=== PATIENT | male | born 1965 | race Caucasian/White ===

== ENCOUNTER 2017-06-13 16:39 | Inpatient (IN) | payer MEDICARE, MEDICAID ==
[~2017-06-13] VITALS: Ht 166.3 cm; Wt 122.5 kg
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
[~2017-06-13 16:39] MED LIST: ABILIFY10 MG PO; ACCUPRIL40 MG PO; ALBUTEROL0.09 MG/A1 INH; ALEVE220 MG PO; AMBIEN10 MG PO; ATIVAN0.5 MG PO; B12-METHYL1000 MCG PO; CARVEDILOL12.5 MG; CELEBREX200 MG PO; CIPRO500 MG PO; CIPROFLOXACIN500 MG PO; CLINDAMYCIN HC300 MG; CLINDAMYCIN HC300 MG PO; CLINDAMYCIN300 MG; CORDROL20 MG PO; COREG25 MG PO; DEXILANT60 M1 PO; EFFEXOR XR150 M1 PO; EFFEXOR XR150 MG PO; FLAGYL500 MG PO; FLONASE0.05 MG/AC NS; FLUTICASON0.05 MG/AC; IRON325 M1 PO; LIDOCAINE VISC100 ML MM; LORAZEPAM0.5 MG PO; MEDROL DOSEPAK4 MG PO; METRONIDAZOLE250 MG PO; NAPROSYN500 MG PO; NORCO 325 MG-51 TAB PO; NORVASC10 MG PO; OXYCODONE15 MG PO; PARAFON FORTE500 MG PO; PERCOCET 325 MG1 TA2 PO; PRILOSEC40 MG PO; PROAIR HFA0.09 MG/AC; SOMA350 MG; SYMBICORT1 AE1 INH; TEGRETOL200 MG PO; TRAZODONE50 MG PO; VENTOLIN 02.5 MG/3 M INH; VIBRAMYCIN100 MG PO; VICODIN 5/500 505 MG PO; VICODIN HP 6601 TA1 PO; VOLTAREN50 M1 PO; XYLOCAINE 5%35.44 GM PO; ZOFRAN ODT4 MG SL; ZOLPIDEM10 M1 PO
[2017-06-13 16:45] VITALS: BP 168/88
[2017-06-13 17:08] LABS: BASO % 0.4 % (0.0-1.0); EOS # 0.4 10*3/uL (0.0-0.4); EOS % 4.3 % (1.0-4.0); HEMATOCRIT 41.1 % (42.0-52.0); HEMOGLOBIN 14.2 g/dl (14.0-18.0); LYMPH # 3.8 10*3/uL (1.3-4.4); MEAN CELL VOLUME 88.8 fl (80.0-94.0); MEAN CORPUSCULAR HGB 30.7 pg (27.0-31.0); MEAN CORPUSCULAR HGB CONC 34.5 g/dl (33.0-37.0); MEAN PLATELET VOLUME 9.5 fl (9.6-12.3); MONO # 0.8 10*3/uL (0.1-1.0); NEUT # 4.9 10*3/uL (2.3-7.9); PLATELET COUNT AUTOMATED 221 10*3/uL (130-400); RED BLOOD COUNT 4.63 10*6/uL (4.50-5.90); RED CELL DISTRI WIDTH 12.7 % (0-14.5); WHITE BLOOD COUNT 9.9 10*3/uL (4.8-10.8)
[2017-06-13 17:25] LABS: ACT PARTIAL THROMBO TIME 24.9 SECONDS (20.8-31.5)
[2017-06-13 17:27] LABS: ALBUMIN 3.4 gm/dl (3.1-4.5); ALKALINE PHOSPHATASE 124 U/L (45-117); BUN 13 mg/dl (7-24); CHLORIDE 108 mmol/L (98-107); CREATININE 0.79 mg/dL (0.70-1.30); SGOT/AST 15 IU/L (3-35); SGPT/ALT 25 U/L (12-78); SODIUM 138 mmol/L (136-145); TOTAL PROTEIN 7.2 gm/dL (6.4-8.2)
[2017-06-13 17:32] LABS: TROPONIN I < 0.015 ng/ml (<0.045)
[2017-06-13 18:15] VITALS: BP 155/85
--- NOTE | 2017-06-13 18:15 | NUR ---
Time: 1814 A 51 year old MALE admitted to 5E under services of DAVONTE PEREZ DO. Pt. arrived via bed from ER. Chief complaint: CHEST PAIN ALYCE MASTERS
--- NOTE | 2017-06-13 18:56 | NUR ---
NOTIFIED DR GARBER OF NEW CONSULT FOR DR SPIVEY. JCARLOS WAS COVERING FOR DR SMITH.NO ORDERS OTHER THAN DR SPIVEY IS TO BE NOTIFIED OF NEW CONSULT AT 6AM TOMORROW MORNING.
[2017-06-13] MEDS ORDERED: PRILOSEC20 M1 PO (19:18)
--- NOTE | 2017-06-13 19:30 | NUR ---
PT. AWAKE, ALERT AND ORIENTED X 3 AT THIS TIME. PT. IN BED WITH AT BEDSIDE AT THIS TIME. PT. CURRENTLY DENIES CP, SOB OR PAIN AT THIS TIME. PT. HAS COLOSTOMY BAG THAT HE STATED HE CHANGES WITH EQUIPMENT THAT HE BROUGHT FROM HOME. CALL LIGHT WITHIN REACH, BED IN LOWEST POSITION, WHEELS LOCKED. SEE SHIFT ASSESMENT.
[2017-06-13 20:40] LABS: CKMB 1.5 ng/ml (0.5-3.6)
[2017-06-13 23:21] LABS: CKMB 1.3 ng/ml (0.5-3.6)
[2017-06-14] VITALS: BP 160/84
--- NOTE | 2017-06-14 06:27 | NUR ---
CALLED DR. SPIVEY'S ANSWERING SERVICE AT THIS TIME FOR CONSULT. PER ANSWERING SERVICE, DR. SPIVEY WILL RETURN CALL.
--- NOTE | 2017-06-14 06:34 | NUR ---
SPOKE WITH DR. SPIVEY AT THIS TIME, PER DR. SPIVEY, ORDER ECHOCARDIOGRAM.
[2017-06-14 06:56] LABS: BASO % 0.5 % (0.0-1.0); EOS # 0.4 10*3/uL (0.0-0.4); EOS % 4.4 % (1.0-4.0); HEMATOCRIT 40.9 % (42.0-52.0); HEMOGLOBIN 13.9 g/dl (14.0-18.0); LYMPH # 3.4 10*3/uL (1.3-4.4); LYMPH % 40.5 % (27.0-41.0); MEAN CELL VOLUME 89.7 fl (80.0-94.0); MEAN CORPUSCULAR HGB 30.5 pg (27.0-31.0); MEAN PLATELET VOLUME 9.9 fl (9.6-12.3); MONO # 0.6 10*3/uL (0.1-1.0); MONO % 7.6 % (3.0-9.0); NEUT # 3.9 10*3/uL (2.3-7.9); NEUT % 46.4 % (47.0-73.0); PLATELET COUNT AUTOMATED 210 10*3/uL (130-400); RED BLOOD COUNT 4.56 10*6/uL (4.50-5.90); RED CELL DISTRI WIDTH 12.6 % (0-14.5); WHITE BLOOD COUNT 8.5 10*3/uL (4.8-10.8)
[2017-06-14 07:18] LABS: ACT PARTIAL THROMBO TIME 25.3 SECONDS (20.8-31.5)
[2017-06-14 07:28] LABS: BUN 16 mg/dl (7-24); CHLORIDE 109 mmol/L (98-107); CHOLESTEROL 172 mg/dL (<200); CREATININE 0.83 mg/dL (0.70-1.30); POTASSIUM 3.8 mmol/L (3.5-5.1); SODIUM 142 mmol/L (136-145); TRIGLYCERIDES 418 mg/dl (<150)
[2017-06-14 07:34] LABS: HDL CHOLESTEROL 28 mg/dl (40-60); THYROID STIM HORMONE (HS) 0.736 uIU/ml (0.358-4.75)
[2017-06-14 08:00] VITALS: BP 164/84
[2017-06-14 08:53] LABS: VITAMIN D, 25-HYDROXY 12.1 ng/mL (30-100)
--- NOTE | 2017-06-14 09:08 | NUR ---
SPOKE TO DR SPIVEY ON TELEPHONE INFORMED HIM OF PT HOME MEDS AND BP 164/84.ORDER RECIEVED FOR NORVASC [address] SPIVEY WANTED PT TO RETURN OUTPATIENT ON AT 6 AM FOR STRESS EXERCISE STRESS TEST.DR SPIVEY WILL SEE PT LATER TODAY.
--- NOTE | 2017-06-14 11:00 | NUR ---
Coffee Roaster in to talk to patient. Patient states lives at home with , daughter, and son. There are 7 step in the back of the house and 2 steps in the front of the home. Physician: Dr. Darya Mckenzie Pharmacy: [facility] services: none at present, previously used OV Patient's level of ADLs: INDEPENDENT Patient has working utilities: yes DME: cane for long distances Follow-up physician's appointment after d/c: will be made by hospitalist nurse director upon discharge Does patient want to access PORTAL?: no Discharge plan home. Patient lives at home with his and 2 adult children. He is independent with his ADLs and ambulation. He states he does use a cane for long distances. Patient will return home with family when medically stable. EPIFANIO CHEN
[2017-06-14 12:00] VITALS: BP 181/96
[2017-06-14 16:00] VITALS: BP 190/96
--- NOTE | 2017-06-14 17:26 | NUR ---
Patient DID NOT SIGN AMA PAPERS Patient encouraged to stay and advised of possible consequences of premature discharge. Physician DR JULIEN and area supervisor JAVIER FREEDMAN notified. Patient instructed what to do regarding care post-departure from the hospital; emergency phone numbers provided. Patent was accompanied by HIS SON. THA CASPER
== END 2017-06-14 17:26 | disposition left against medical advice (07) | DRG 313 ==
LOC: ED 16:39 → 5E 17:36 → EDHOLD 17:36 → 5E 17:51
PROVIDERS: Internal Medicine; ADMIT Emergency Medicine
DX: R07.89 Other chest pain (principal); E44.1 Mild protein-calorie malnutrition; I16.1 Hypertensive emergency; Z68.41 Body mass index [BMI] 40.0-44.9, adult; K21.9 Gastro-esophageal reflux disease without esophagitis; I10 Essential (primary) hypertension; J45.909 Unspecified asthma, uncomplicated; G56.00 Carpal tunnel syndrome, unspecified upper limb; G89.29 Other chronic pain; E78.1 Pure hyperglyceridemia; M54.9 Dorsalgia, unspecified; E55.9 Vitamin D deficiency, unspecified; E53.8 Deficiency of other specified B group vitamins; Z53.20 Procedure and treatment not carried out because of patient's decision for unspecified reasons; Z88.1 Allergy status to other antibiotic agents; Z88.8 Allergy status to other drugs, medicaments and biological substances; Z79.2 Long term (current) use of antibiotics; Z79.899 Other long term (current) drug therapy; Z87.11 Personal history of peptic ulcer disease; Z90.49 Acquired absence of other specified parts of digestive tract; Z82.49 Family history of ischemic heart disease and other diseases of the circulatory system; Z87.891 Personal history of nicotine dependence; Z93.3 Colostomy status; Z80.0 Family history of malignant neoplasm of digestive organs; G43.909 Migraine, unspecified, not intractable, without status migrainosus

== ENCOUNTER 2017-12-31 19:10 | Emergency (ER) | payer MEDICARE, MEDICAID ==
[~2017-12-31] VITALS: Ht 162.5 cm; Wt 126.1 kg
[~2017-12-31 19:10] MED LIST changes: +ACCUPRIL20 MG PO; +PRILOSEC20 M1 PO
[2017-12-31] MEDS ORDERED: NORCO 5-325 TA1 EACH PO (20:21)
[2018-01-22] MEDS ORDERED: PERCOCET 5-3251 EACH PO (11:37)
== END 2017-12-31 20:31 | disposition home or self-care (01) ==
LOC: ED 19:10
DX: S82.891A Other fracture of right lower leg, initial encounter for closed fracture (principal); X50.1XXA Overexertion from prolonged static or awkward postures, initial encounter; F12.10 Cannabis abuse, uncomplicated; Z88.1 Allergy status to other antibiotic agents; Z79.899 Other long term (current) drug therapy; Z90.49 Acquired absence of other specified parts of digestive tract; Z87.891 Personal history of nicotine dependence; Y93.89 Activity, other specified; Y92.89 Other specified places as the place of occurrence of the external cause; Y99.8 Other external cause status

== ENCOUNTER → 2018-01-10 | Outpatient (CLI) | payer MEDICARE, MEDICAID ==
[~2018-01-10] MED LIST changes: +B12,B-12,B 12500 MC1 PO; +EFFEXOR XR75 M1 PO; +LIPITOR20 MG PO; +NORCO 5-325 TA1 EACH PO; +PERCOCET 5-3251 EACH PO; +VITAMIN D5000 UNI1 PO
== END ==
LOC: ORTHO 03:33
DX: Z47.89 Encounter for other orthopedic aftercare (principal); S82.64XD Nondisplaced fracture of lateral malleolus of right fibula, subsequent encounter for closed fracture with routine healing; X58.XXXD Exposure to other specified factors, subsequent encounter

== ENCOUNTER 2018-01-27 23:07 | Inpatient (IN) | payer MEDICARE, MEDICAID ==
[~2018-01-27] VITALS: Ht 165.1 cm; Wt 126.2 kg
--- NOTE | ~2018-01-27 | CON ---
[place], [place] REPORT OF CONSULTATION NAME: ANNI TAYLOR UNIT #: [id number] ROOM: 515 DOCTOR: SHADI SPIVEY MD BIRTHDATE: [birth year] DOS: 01/28/2018 HISTORY OF PRESENT ILLNESS: This is a 52-year-old gentleman admitted with left-sided precordial chest discomfort. No acute EKG changes, suggestion of myocardial ischemia or infarction. Last stress test was in 2012. The patient is a former smoker, has history of hypertension, and presented with significant chest discomfort and shortness of breath. PAST MEDICAL HISTORY: Significant for diastolic CHF, dyslipidemia, hypertension, prediabetes, and tobacco abuse. SURGICAL HISTORY: Colostomy in place, history of partial colectomy, cholecystectomy, and colectomy. HOME MEDICATIONS: Carvedilol, omeprazole, and quinapril. ALLERGIES: AMOXICILLIN AND METRONIDAZOLE. SOCIAL HISTORY: Marijuana use, cigar use, and tobacco use. FAMILY HISTORY: Positive for coronary artery disease. REVIEW OF SYSTEMS: CONSTITUTIONAL: No fever, no chills. HEENT: No visual disturbances or hearing problems. CARDIOVASCULAR SYSTEM: As per HPI. GASTROINTESTINAL: No nausea, no vomiting. GENITOURINARY: No dysuria. NEUROLOGICAL: Stable. PHYSICAL EXAMINATION: VITAL SIGNS: Blood pressure is 130/70, the patient is in sinus rhythm. HEENT: Unremarkable. NECK: Supple. No JVD. LUNGS: Clear. HEART: Sounds are regular. ABDOMEN: Positive bowel sounds. NEUROLOGIC: Stable. LABORATORY DATA: Electrolytes are normal. Creatinine is 1.1. INR is 1. BNP is okay. Hemoglobin is 13.7 and hematocrit is 40.5. IMPRESSION: The patient with chest discomfort, hypertension, hyperlipidemia, tobacco abuse, marijuana use, and gastroesophageal reflux disease. RECOMMENDATIONS: Continue the present medications. The last ejection fraction is 50%-55%. We will proceed with a stress test and I will follow up. [place], [place] REPORT OF CONSULTATION NAME: ANNI TAYLOR UNIT #: [id number] ROOM: [facility] DOCTOR: SHADI SPIVEY MD BIRTHDATE: [birth year] SHADI SPIVEY MD CM:CONSTR:REPORT OF CONSULTATION 5 01/28/18724 interface
--- NOTE | ~2018-01-27 | EKG ---
[place], [place] ELECTROCARDIOGRAM REPORT NAME: ANNI TAYLOR UNIT #: [id number] ROOM: [facility] DOCTOR: EPIPHANY DRAFT REPORT BIRTHDATE: [birth year] [facility] Test Date: 2018-01-27 Test Time: 23:36:25 Pat Name: ANNI TAYLOR Department: ER Room: 6 Gender: M Human Resources Office Manager: : 1965 Requested By: DULCE MARIA GARCIA Order Number: [id number] Reading MD: Raad Bruno MD Measurements Intervals Newberg Rate: 86 P: 2 MS: 177 QRS: 53 QRSD: 85 T: 37 QT: 345 QTc: 413 Interpretive Statements Sinus rhythm Low voltage, precordial leads Electronically Signed On 02-04-2018 4:40:45 PDT by Raad Bruno MD CM:EKGRPT:ELECTROCARDIOGRAM REPORT [id number] DULCE MARIA GARCIA MD EPIPHANY DRAFT REPORT DULCE MARIA GARCIA MD
--- NOTE | ~2018-01-27 | ST ---
[place], [place] EXERCISE STRESS TEST REPORT NAME: ANNI TAYLOR UNIT #: [id number] ROOM: [facility] DOCTOR: SHADI SPIVEY MD BIRTHDATE: [birth year] DOS: 01/28/2018 LEXISCAN PORTION OF THE LEXISCAN CARDIOLITE Baseline cardiogram, sinus rhythm with nonspecific ST-T changes, 0.4 mg of Lexiscan, duration of 10 seconds. With Lexiscan, no new EKG changes. No chest pain. Blood pressure and heart rate response was normal. Nuclear images will be reported separately. SHADI SPIVEY MD CM:STRESS:EXERCISE STRESS TEST REPORT [id number] SHADI SPIVEY MD
[~2018-01-27 23:07] MED LIST changes: -B12,B-12,B 12500 MC1 PO; -EFFEXOR XR75 M1 PO; -LIPITOR20 MG PO; -VITAMIN D5000 UNI1 PO
[2018-01-27 23:11] VITALS: BP 175/79
[2018-01-27 23:56] VITALS: BP 142/93
[2018-01-28 00:08] LABS: ACT PARTIAL THROMBO TIME 22.3 SECONDS (20.8-31.5)
[2018-01-28 00:11] VITALS: BP 133/83
[2018-01-28 00:16] LABS: ALBUMIN 3.4 gm/dl (3.1-4.5); ALKALINE PHOSPHATASE 159 U/L (45-117); BUN 16 mg/dl (7-24); CHLORIDE 109 mmol/L (98-107); CREATININE 1.16 mg/dL (0.70-1.30); POTASSIUM 3.6 mmol/L (3.5-5.1); SGOT/AST 16 IU/L (3-35); SGPT/ALT 29 U/L (12-78); SODIUM 142 mmol/L (136-145); TOTAL PROTEIN 6.9 gm/dL (6.4-8.2)
[2018-01-28 00:17] LABS: CKMB 2.3 ng/ml (0.5-3.6); TROPONIN I < 0.015 ng/ml (<0.045)
[2018-01-28 00:38] VITALS: BP 135/74
[2018-01-28 01:16] LABS: BASO # 0.1 10*3/uL (0.0-0.1); BASO % 0.4 % (0.0-1.0); EOS # 0.5 10*3/uL (0.0-0.4); EOS % 3.8 % (1.0-4.0); HEMATOCRIT 40.5 % (42.0-52.0); HEMOGLOBIN 13.7 g/dl (14.0-18.0); LYMPH # 4.4 10*3/uL (1.3-4.4); LYMPH % 35.6 % (27.0-41.0); MEAN CORPUSCULAR HGB 29.8 pg (27.0-31.0); MEAN CORPUSCULAR HGB CONC 33.8 g/dl (33.0-37.0); MEAN PLATELET VOLUME 9.4 fl (9.6-12.3); MONO # 0.9 10*3/uL (0.1-1.0); MONO % 7.4 % (3.0-9.0); NEUT # 6.4 10*3/uL (2.3-7.9); NEUT % 52.5 % (47.0-73.0); PLATELET COUNT AUTOMATED 206 10*3/uL (130-400); RED CELL DISTRI WIDTH 13.2 % (0-14.5); WHITE BLOOD COUNT 12.2 10*3/uL (4.8-10.8)
[2018-01-28 02:00] VITALS: BP 152/72
[2018-01-28] MEDS ORDERED: EFFEXOR XR75 M1 PO (02:18)
[2018-01-28 06:02] LABS: BASO % 0.4 % (0.0-1.0); EOS # 0.5 10*3/uL (0.0-0.4); EOS % 4.8 % (1.0-4.0); HEMATOCRIT 39.1 % (42.0-52.0); HEMOGLOBIN 13.1 g/dl (14.0-18.0); LYMPH # 3.7 10*3/uL (1.3-4.4); LYMPH % 38.1 % (27.0-41.0); MEAN CELL VOLUME 88.7 fl (80.0-94.0); MEAN CORPUSCULAR HGB 29.7 pg (27.0-31.0); MEAN CORPUSCULAR HGB CONC 33.5 g/dl (33.0-37.0); MEAN PLATELET VOLUME 9.5 fl (9.6-12.3); MONO # 0.7 10*3/uL (0.1-1.0); NEUT # 4.8 10*3/uL (2.3-7.9); NEUT % 49.4 % (47.0-73.0); PLATELET COUNT AUTOMATED 197 10*3/uL (130-400); RED BLOOD COUNT 4.41 10*6/uL (4.50-5.90); RED CELL DISTRI WIDTH 13.2 % (0-14.5); WHITE BLOOD COUNT 9.6 10*3/uL (4.8-10.8)
[2018-01-28 06:11] LABS: ALBUMIN 3.1 gm/dl (3.1-4.5); ALKALINE PHOSPHATASE 135 U/L (45-117); BUN 14 mg/dl (7-24); CHLORIDE 111 mmol/L (98-107); CHOLESTEROL 125 mg/dL (<200); CREATININE 1.01 mg/dL (0.70-1.30); HDL CHOLESTEROL 29 mg/dl (40-60); LDL CHOLESTEROL 47 mg/dL (9-159); PHOSPHOROUS 3.9 mg/dL (2.5-4.9); POTASSIUM 3.6 mmol/L (3.5-5.1); SGOT/AST 14 IU/L (3-35); SGPT/ALT 26 U/L (12-78); SODIUM 143 mmol/L (136-145); TOTAL PROTEIN 6.4 gm/dL (6.4-8.2); TRIGLYCERIDES 244 mg/dl (<150); VLDL CHOLESTEROL 49 mg/dL (6-40)
[2018-01-28 06:21] LABS: CARBAMAZEPINE (TEGRETOL) TOTAL < 0.5 ug/ml (4-12)
[2018-01-28 07:46] LABS: VITAMIN D, 25-HYDROXY 19.2 ng/mL (30-100)
[2018-01-28 08:00] VITALS: BP 157/87
[2018-01-28] MEDS ORDERED: LIPITOR20 MG PO (11:37)
[2018-01-28 12:00] VITALS: BP 151/84
[2018-01-28] MEDS ORDERED: VITAMIN D5000 UNI1 PO (13:55)
[2018-01-28] MEDS ORDERED: B12,B-12,B 12500 MC1 PO (13:55)
[2018-01-28 16:41] VITALS: BP 155/86
== END 2018-01-28 16:40 | disposition home or self-care (01) | DRG 392 ==
LOC: ED 23:07 → 5E 01-28 00:58 → EDHOLD 01-28 00:58 → 5E 01-28 01:05
PROVIDERS: Emergency Medicine; Internal Medicine
PROC: 4A02XM4 Measurement of Cardiac Total Activity, External Approach (ICD-10-PCS; principal; 2018-01-28)
PROC: 3E073KZ Introduction of Other Diagnostic Substance into Coronary Artery, Percutaneous Approach (ICD-10-PCS; principal; 2018-01-28)
DX: K21.9 Gastro-esophageal reflux disease without esophagitis (principal); R65.10 Systemic inflammatory response syndrome (SIRS) of non-infectious origin without acute organ dysfunction; I11.0 Hypertensive heart disease with heart failure; E87.8 Other disorders of electrolyte and fluid balance, not elsewhere classified; I50.32 Chronic diastolic (congestive) heart failure; G62.9 Polyneuropathy, unspecified; E66.01 Morbid (severe) obesity due to excess calories; Z68.42 Body mass index [BMI] 45.0-49.9, adult; R07.89 Other chest pain; R09.1 Pleurisy; F41.9 Anxiety disorder, unspecified; R73.9 Hyperglycemia, unspecified; F12.10 Cannabis abuse, uncomplicated; D64.9 Anemia, unspecified; J45.909 Unspecified asthma, uncomplicated; E53.8 Deficiency of other specified B group vitamins; E55.9 Vitamin D deficiency, unspecified; E78.5 Hyperlipidemia, unspecified; G89.29 Other chronic pain; M54.9 Dorsalgia, unspecified; E78.1 Pure hyperglyceridemia; Z87.81 Personal history of (healed) traumatic fracture; Z90.49 Acquired absence of other specified parts of digestive tract; Z88.0 Allergy status to penicillin; Z88.8 Allergy status to other drugs, medicaments and biological substances; Z79.899 Other long term (current) drug therapy; Z82.49 Family history of ischemic heart disease and other diseases of the circulatory system; Z80.0 Family history of malignant neoplasm of digestive organs; Z71.6 Tobacco abuse counseling; Z72.0 Tobacco use

== ENCOUNTER 2018-03-19 22:49 | Emergency (ER) | payer MEDICARE, MEDICAID ==
[~2018-03-19] VITALS: Ht 162.5 cm; Wt 129.3 kg
[~2018-03-19 22:49] MED LIST changes: +B12,B-12,B 12500 MC1 PO; +EFFEXOR XR75 M1 PO; +LIPITOR20 MG PO; +VITAMIN D5000 UNI1 PO
[2018-03-20 01:41] LABS: BILIRUBIN NEGATIVE (NEGATIVE); BLOOD 3+ (NEGATIVE); CLARITY CLEAR (CLEAR); COLOR YELLOW (YELLOW); GLUCOSE NEGATIVE (NEGATIVE); KETONE NEGATIVE (NEGATIVE); LEUKO ESTERASE TRACE (NEGATIVE); NITRITE NEGATIVE (NEGATIVE); SPECIFIC GRAVITY 1.025 (1.005-1.030); UROBILINOGEN 0.2 E.U./dl (0.2-1.0)
[2018-03-20 01:53] LABS: RBC 21-30 rbc/hpf (0-2)
[2018-03-20 02:25] LABS: BASO # 0.1 10*3/uL (0.0-0.1); BASO % 0.3 % (0.0-1.0); EOS # 0.3 10*3/uL (0.0-0.4); EOS % 1.6 % (1.0-4.0); HEMATOCRIT 40.1 % (42.0-52.0); HEMOGLOBIN 13.2 g/dl (14.0-18.0); LYMPH # 3.3 10*3/uL (1.3-4.4); LYMPH % 21.4 % (27.0-41.0); MEAN CELL VOLUME 88.1 fl (80.0-94.0); MEAN CORPUSCULAR HGB CONC 32.9 g/dl (33.0-37.0); MEAN PLATELET VOLUME 8.9 fl (9.6-12.3); MONO # 1.3 10*3/uL (0.1-1.0); MONO % 8.3 % (3.0-9.0); NEUT # 10.6 10*3/uL (2.3-7.9); PLATELET COUNT AUTOMATED 281 10*3/uL (130-400); RED BLOOD COUNT 4.55 10*6/uL (4.50-5.90); RED CELL DISTRI WIDTH 12.9 % (0-14.5); WHITE BLOOD COUNT 15.6 10*3/uL (4.8-10.8)
[2018-03-20 02:41] LABS: ALBUMIN 3.1 gm/dl (3.1-4.5); ALKALINE PHOSPHATASE 133 U/L (45-117); BUN 13 mg/dl (7-24); CHLORIDE 107 mmol/L (98-107); CREATININE 0.89 mg/dL (0.70-1.30); POTASSIUM 3.5 mmol/L (3.5-5.1); SGOT/AST 13 IU/L (3-35); SGPT/ALT 21 U/L (12-78); SODIUM 138 mmol/L (136-145); TOTAL PROTEIN 7.1 gm/dL (6.4-8.2)
== END 2018-03-20 04:55 | disposition short-term general hospital (02) ==
LOC: ED 22:49
PROVIDERS: Physician Assistant
DX: R33.9 Retention of urine, unspecified (principal); I11.0 Hypertensive heart disease with heart failure; I50.30 Unspecified diastolic (congestive) heart failure; K21.9 Gastro-esophageal reflux disease without esophagitis; E66.01 Morbid (severe) obesity due to excess calories; G62.9 Polyneuropathy, unspecified; R73.03 Prediabetes; Z88.1 Allergy status to other antibiotic agents; Z88.8 Allergy status to other drugs, medicaments and biological substances; Z79.899 Other long term (current) drug therapy; Z87.891 Personal history of nicotine dependence

== ENCOUNTER 2018-08-08 09:07 | Emergency (ER) | payer MEDICARE, MEDICAID ==
[~2018-08-08] VITALS: Wt 124.7 kg
[2018-08-08] MEDS ORDERED: Motrin,Rufen800 MG PO (10:40)
[2018-09-14] MEDS ORDERED: COREG25 MG PO (22:48)
== END 2018-08-08 11:16 | disposition home or self-care (01) ==
LOC: ED 09:07
DX: M65.341 Trigger finger, right ring finger (principal); K21.9 Gastro-esophageal reflux disease without esophagitis; E66.01 Morbid (severe) obesity due to excess calories; I11.0 Hypertensive heart disease with heart failure; I50.30 Unspecified diastolic (congestive) heart failure; G62.9 Polyneuropathy, unspecified; F17.210 Nicotine dependence, cigarettes, uncomplicated; Z88.1 Allergy status to other antibiotic agents; Z79.899 Other long term (current) drug therapy

== ENCOUNTER → 2021-08-14 | Outpatient (CLI) | payer OTHER ==
[~2021-08-14] MED LIST changes: +Motrin,Rufen800 MG PO
== END ==
LOC: RAD 12:18
PROVIDERS: ATTEND Family Medicine
DX: M77.31 Calcaneal spur, right foot (principal); M79.89 Other specified soft tissue disorders

== ENCOUNTER 2023-07-16 18:11 | Emergency (ER) | payer OTHER ==
[~2023-07-16] VITALS: Ht 162.5 cm; Wt 131.5 kg
[~2023-07-16 18:11] MED LIST changes: +BENADRYL ALLERG25 M5 PO; +LISINOPRIL10 M1 PO; +NEURONTIN300 MG PO; +NORVASC2.5 MG PO; +PREDNISONE10 M1 PO
[2023-07-16] MEDS ORDERED: LISINOPRIL10 M1 PO (18:37)
[2023-07-16 20:28] LABS: BASO # 0.1 10*3/uL (0.0-0.1); BASO % 0.7 % (0.0-1.0); EOS # 0.2 10*3/uL (0.0-0.4); EOS % 2.6 % (1.0-4.0); HEMATOCRIT 46.8 % (42.0-52.0); LYMPH # 1.9 10*3/uL (1.3-4.4); LYMPH % 22.9 % (27.0-41.0); MEAN CELL VOLUME 88.3 fl (80.0-94.0); MEAN CORPUSCULAR HGB 29.6 pg (27.0-31.0); MEAN CORPUSCULAR HGB CONC 33.5 g/dl (33.0-37.0); MEAN PLATELET VOLUME 9.1 fl (9.6-12.3); MONO # 0.7 10*3/uL (0.1-1.0); MONO % 9.2 % (3.0-9.0); NEUT # 5.2 10*3/uL (2.3-7.9); NEUT % 64.4 % (47.0-73.0); PLATELET COUNT AUTOMATED 181 10*3/uL (130-400); RED CELL DISTRI WIDTH 13.2 % (0-14.5); WHITE BLOOD COUNT 8.1 10*3/uL (4.8-10.8)
[2023-07-16 20:44] LABS: ACT PARTIAL THROMBO TIME 26.8 SECONDS (20.0-32.1)
[2023-07-16 20:48] LABS: ALKALINE PHOSPHATASE 87 U/L (46-116); BUN 10 mg/dl (9-23); CHLORIDE 105 mmol/L (98-107); POTASSIUM 3.5 mmol/L (3.4-5.1); SGPT/ALT 17 U/L (5-49)
== END 2023-07-16 23:48 | disposition left against medical advice (07) ==
LOC: ED 18:11
PROVIDERS: Emergency Medicine
DX: R07.89 Other chest pain (principal); I16.0 Hypertensive urgency; F17.200 Nicotine dependence, unspecified, uncomplicated; Z88.1 Allergy status to other antibiotic agents; Z88.8 Allergy status to other drugs, medicaments and biological substances; Z79.899 Other long term (current) drug therapy; Z90.49 Acquired absence of other specified parts of digestive tract